=== PATIENT | male | born 2000 | race Caucasian/White ===

== ENCOUNTER 2019-04-25 13:46 | Emergency (ER) | payer OTHER ==
[2019-04-25 13:59] VITALS: BP 116/75; PULSE 75; RESP 20; TEMP 98.6
--- NOTE | 2019-04-25 14:50 | ED ---
Wound/Laceration HPI - General Chief Complaint: Wound/Laceration Stated Complaint: Finger Lac Time Seen by Provider: 04/25/19 14:11 Source: patient, RN notes reviewed, old records reviewed Mode of arrival: ambulatory Limitations: no limitations - History of Present Illness Initial Comments: This is a 19-year-old male presents emergency department today for evaluation for laceration over his right index finger. Patient reports he cut it on a knife while he was at work. 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 Patient states that he has full range of motion of the finger. Lacerations over the side of the finger over the PIP. - Related Data Previous Rx's Medication Instructions Recorded Cephalexin [Keflex] 500 mg PO Q6HR 3 Days #12 cap 04/25/19 Allergies Allergy/AdvReac Type Severity Reaction Status Date / Time No Known Allergies Allergy Verified 04/25/19 13:59 Review of Systems ROS Statement: Those systems with pertinent positive or pertinent negative responses have been documented in the HPI. ROS Other: All systems not noted in ROS Statement are negative. Past Medical History Past Medical History: No Reported History History of Any Multi-Drug Resistant Organisms: None Reported Past Surgical History: No Surgical Hx Reported Past Psychological History: No Psychological Hx Reported Smoking Status: Never smoker Past Alcohol Use History: Occasional Past Drug Use History: Marijuana General Exam - General Exam Comments Initial Comments: 19 year old male, no distress. Limitations: no limitations General appearance: alert, in no apparent distress Head exam: Present: atraumatic, normocephalic, normal inspection Eye exam: Present: normal appearance, PERRL, EOMI. Absent: scleral icterus, conjunctival injection, periorbital swelling ENT exam: Present: normal exam, mucous membranes moist Neck exam: Present: normal inspection. Absent: tenderness, meningismus, lymphadenopathy Respiratory exam: Present: normal lung sounds bilaterally. Absent: respiratory distress, wheezes, rales, rhonchi, stridor Cardiovascular Exam: Present: regular rate, normal rhythm, normal heart sounds. Absent: systolic murmur, diastolic murmur, rubs, gallop, clicks Right Hand Wrist exam: Present: full ROM, laceration (3cm flap laceration over 2nd digit PIP. 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 ). Absent: normal inspection Neuro motor exam: Present: wrist extension intact, thumb opposition intact, thumb IP flexion intact, thumb adduction intact, fingers 2-5 abduction intact Vascular: Present: normal capillary refill Course Vital Signs 04/25/19 13:57 Temperature 98.6 F Pulse Rate 75 Respiratory 20 Rate Blood Pressure 116/75 O2 Sat by Pulse 99 Oximetry Procedures - Laceration Laceration #1 Site: hand (left fourth digit. ) Size (cm): 3 Description: flap Depth: simple, single layer Anesthetic Used: lidocaine 1% Anesthesia Technique: nerve block Amount (mls): 4 Pre-repair: wound explored, irrigated extensively Type of Sutures: nylon Size of Sutures: 5-0 Number of Sutures: 5 Technique: simple, interrupted Patient Tolerated Procedure: well, no complications Medical Decision Making - Medical Decision Making 19 year old male presents with 2nd right digit laceration after cutting it at work with knife. 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 Patient refused tetanus vaccine, discussed concern for dirty wound and risk of from tetnus. He is adament no treatement with TDAP. Xray shows no fracture, possible foreign body, wound was irrigated copiously with 4 liters of sterile water and wound was cleansed with iodoine. No foreign body identified. Patient laceration was well approximated with 5 sutures. Discussed putting patient on short course of keflex for concern for infection. Discussed close PCP follow up. - Radiology Data Radiology results: report reviewed No definite acute fracture or dislocation. Soft tissue edema and lacerations its possible tiny linear foreign body noted on oblique view. Correlate clinically. Disposition Clinical Impression: Laceration of finger Disposition: HOME SELF-CARE Condition: Good Instructions (If sedation given, give patient instructions): Laceration (ED) Additional Instructions: Please return to the emergency room in 8-10 days to have sutures removed. Please leave wound covered for the first 24-48 hours and then leave open to air after that time. Please use clean soap and water to clean the suture area to prevent scabbing over the top of your sutures. Please watch for any signs of infection which may include but not limited to increased pain, swelling, redness, fever or chills. Please return to the emergency room if any signs of infection do occur. Please return to the emergency room for any other concerns or complications. Prescriptions: Cephalexin [Keflex] 500 mg PO Q6HR 3 Days #12 cap Is patient prescribed a controlled substance at d/c from ED?: No Referrals: Colt Cleaning MD [Primary Care Provider] - 1-2 days Time of Disposition: 15:56
--- NOTE | 2019-04-25 14:51 | XR ---
EXAMINATION TYPE: XR finger RT DATE OF EXAM: 04/25/2019 COMPARISON: NONE HISTORY: Pain TECHNIQUE: Three views are submitted. FINDINGS: The osseous structures are intact. The joint spaces are preserved and there is no acute fracture or dislocation. There is soft tissue edema and laceration involving the second digit. On the oblique vie w there is suggestion of possible linear foreign body at the level of the PIP joint. IMPRESSION: 1. No definite acute fracture or dislocation if symptoms persist, follow-up study in 7 to 10 days wo uld be suggested 2. Soft tissue edema and laceration with possible tiny linear foreign body noted on the oblique view correlate clinically
== END 2019-04-25 16:15 | disposition home or self-care (01) ==
LOC: EC 13:46
DX: S61.215A Laceration without foreign body of left ring finger without damage to nail, initial encounter (principal); W26.0XXA Contact with knife, initial encounter
CPT/HCPCS: 12002; 99283

== ENCOUNTER 2022-07-29 19:23 | Emergency (ER) | payer OTHER ==
[2022-07-29] MEDS ORDERED: DIPH,PERTUS(ACELL)TETVAC-LF 0.5 ML VIAL IM ONE (19:29)
[2022-07-29] MEDS ORDERED: KETAMINE 10 MG/ML 20 ML VIAL IV ONE (19:32)
[2022-07-29 19:42] LABS: Basophils % (A) 0 %; Eosinophils # (A) 0.3 k/uL (0-0.7); Eosinophils % (A) 2 %; HCT 38.8 % (39.0-53.0); HGB 13.5 gm/dL (13.0-17.5); Lymphocytes # (A) 2.8 k/uL (1.0-4.8); Lymphocytes % (A) 23 %; MCH 29.6 pg (25.0-35.0); MCHC 34.7 g/dL (31.0-37.0); MCV 85.1 fL (80.0-100.0); Mean Platelet Volume 7.6; Monocytes # (A) 0.5 k/uL (0-1.0); Monocytes % (A) 4 %; Neutrophils # (A) 8.1 k/uL (1.3-7.7); Neutrophils % (A) 68 %; Platelet Count 333 k/uL (150-450); RBC 4.56 m/uL (4.30-5.90); WBC 11.9 k/uL (3.8-10.6)
[2022-07-29 19:50] LABS: Partial Thromboplastin Time 22.7 sec (22.0-30.0); Prothrombin Time 10.7 sec (9.0-12.0)
[2022-07-29 19:58] LABS: ALT 26 U/L (4-49); AST 25 U/L (17-59); African American GFR (CKD) >90 (>60 ml/min/1.73 sqM); Albumin 3.9 g/dL (3.5-5.0); Alkaline Phosphatase 71 U/L (38-126); Anion Gap 13 mmol/L; Blood Urea Nitrogen 19 mg/dL (9-20); Calcium 8.3 mg/dL (8.4-10.2); Carbon Dioxide 21 mmol/L (22-30); Chloride 101 mmol/L (98-107); Glucose 109 mg/dL (74-99); Non-African American GFR(CKD) 85 (>60 ml/min/1.73 sqM); Sodium 135 mmol/L (137-145); Total Bilirubin 0.5 mg/dL (0.2-1.3); Total Protein 6.1 g/dL (6.3-8.2)
[2022-07-29] MEDS ORDERED: KETAMINE 50 MG/ML 10 ML VIAL IM ONE ×2 (20:00)
[2022-07-29] MEDS ORDERED: KETAMINE 50 MG/ML 10 ML VIAL IV ONE (20:00)
--- NOTE | 2022-07-29 20:07 | XR ---
EXAMINATION TYPE: XR ankle limited RT DATE OF EXAM: 07/29/2022 COMPARISON: NONE HISTORY: Fall. Pain TECHNIQUE: 2 views FINDINGS: There is anterior dislocation of the talus. There is transverse fracture of the distal shaf t of the fibula. There is anterior displacement of the talus 8 cm. There is an open fracture and appa rent exposure of the posterior malleolus. The calcaneus appears intact. There is likely fracture of t he medial malleolus. There is probably chip fracture of the posterior malleolus. IMPRESSION: Open anterior fracture dislocation of the talus. Transverse fracture distal fibula.
[2022-07-29 20:09] LABS: Alcohol 117 mg/dL
--- NOTE | 2022-07-29 20:09 | XR ---
EXAMINATION TYPE: XR chest 1V portable DATE OF EXAM: 07/29/2022 COMPARISON: NONE HISTORY: Fall. Pain TECHNIQUE: 2 views portable supine FINDINGS: There is no heart failure nor confluent pneumonic infiltrate. No evidence of pleural effusi on or pneumothorax. No rib fracture seen. Trachea is midline. Heart and mediastinum are normal. The l ungs are clear. IMPRESSION: No active cardiopulmonary disease.
[2022-07-29 20:10] VITALS: PULSE 87
--- NOTE | 2022-07-29 20:10 | XR ---
EXAMINATION TYPE: XR pelvis AP view DATE OF EXAM: 07/29/2022 COMPARISON: NONE HISTORY: Fall. Pain TECHNIQUE: Single view FINDINGS: The pelvic ring is intact. Proximal femurs and hip joints are intact. Sacroiliac joints are intact. IMPRESSION: Negative pelvis xray exam. No fracture.
--- NOTE | 2022-07-29 20:10 | XR ---
EXAMINATION TYPE: XR shoulder limited RT DATE OF EXAM: 07/29/2022 COMPARISON: NONE HISTORY: Fall. Pain TECHNIQUE: Single view FINDINGS: There is apparent anterior dislocation of the glenohumeral joint. Scapula is intact. No fra cture seen. IMPRESSION: Anterior dislocation of the glenohumeral joint.
--- NOTE | 2022-07-29 20:11 | ED ---
General Adult HPI - General Stated complaint: Fall, Open right leg fracture, Shoulder Injury Time Seen by Provider: 07/29/22 19:26 Source: patient Mode of arrival: ambulatory Limitations: no limitations - History of Present Illness Initial comments: Dictation was produced using [employer] dictation software. please excuse any grammatical, word or spelling errors. Chief Complaint: 22-year-old male presents with fall from 20 feet History of Present Illness: Patient 22-year-old male presents emergency Department with fall from 20 feet. Patient just prior to arrival was climbing on a fence that was about 20 feet. He was dared by his friends. He had several alcoholic beverages. Patient got to the top lost balance decided to jump backwards. Patient noted significant bleeding from his leg. He also had gross deformity to his right shoulder. Patient denies any medical comorbidities. EMS placed patient's right lower extremity and a tourniquet. Patient was given 10 mg of morphine just prior to arrival. Denies any loss of conscious. Denies any chest pain or shoulder pain. The ROS documented in this emergency department record has been reviewed and confirmed by me. Those systems with pertinent positive or negative responses have been documented in the HPI. All other systems are other negative and/or noncontributory. PHYSICAL EXAM: General Impression: Alert and oriented x3, acute distress secondary to pain, inebriated HEENT: Normocephalic atraumatic, extra-ocular movements intact, pupils equal and reactive to light bilaterally, mucous membranes moist. Cardiovascular: Heart regular rate and rhythm Chest: Able to complete full sentences, no retractions, no tachypnea Abdomen: abdomen soft, non-tender, non-distended, no organomegaly Musculoskeletal: Pulses present and equal in all extremities, no peripheral edema Motor: no focal deficits noted Right lower extremity: Open fracture with gross deformity. There is a open fracture at the medial portion Upper extremity: There appears to be fullness to the anterior portion with sulcus sign Neurological: CN II-XII grossly intact, no focal motor or sensory deficits noted Skin: Intact with no visualized rashes Psych: Normal affect and mood ED course: 22-year-old male presents emergency Department with chief complaint of fall. He has open fracture dislocation of the right ankle and dislocation of the right shoulder. Vital signs upon arrival are within acceptable limits. Patient given Ancef. Tetanus was updated. Patient given sedation with ketamine. There was an attempt to reduce the right ankle fracture dislocation however unsuccessful. Case discussed with Dr. Rai who states just to splint the leg and to send the patient down. Patient has good dorsalis pedis pulse. Tourniquet was taken down. Right shoulder was reduced with ketamine sedation. Patient will be transferred to [facility]. Septic physician is Dr. Rai, Dr. Vazquez and Dr. Shepherd. In order to reduce transfer times CTs will be deferred to [facility]. Patient has no physical exam signs of abdominal, thoracic, cervical or intracranial trauma. Shoulder x-ray performed prior to procedure shows anterior shoulder dislocation. Pelvis x-ray is unremarkable. Chest x-ray is unremarkable. Ankle x-ray shows open anterior fracture dislocation of the talus. There is also a transverse fr acture distal fibula. - Related Data Previous Rx's Medication Instructions Recorded Cephalexin [Keflex] 500 mg PO Q6HR 3 Days #12 cap 04/25/19 Allergies Allergy/AdvReac Type Severity Reaction Status Date / Time bee venom protein (honey bee) AdvReac Unknown Verified 07/29/22 19:42 honeysuckle flower AdvReac Unknown Verified 07/29/22 19:42 Review of Systems ROS Statement: Those systems with pertinent positive or pertinent negative responses have been documented in the HPI. ROS Other: All systems not noted in ROS Statement are negative. Past Medical History Past Medical History: No Reported History History of Any Multi-Drug Resistant Organisms: None Reported Past Surgical History: No Surgical Hx Reported Past Psychological History: No Psychological Hx Reported Smoking Status: Current some day smoker Past Alcohol Use History: Occasional Past Drug Use History: Marijuana General Exam Limitations: no limitations Course Vital Signs 07/29/22 07/29/22 07/29/22 19:42 19:48 19:50 Temperature 98.0 F Pulse Rate 92 87 97 Respiratory 18 16 18 Rate Blood Pressure 145/77 149/84 158/83 O2 Sat by Pulse 100 100 100 Oximetry 07/29/22 07/29/22 19:55 20:00 Temperature Pulse Rate 107 H 87 Respiratory 18 20 Rate Blood Pressure 156/107 113/94 O2 Sat by Pulse 98 98 Oximetry Procedures - Orthopedic Joint Reduction Joint #1 Consent Obtained: verbal consent, emergent situation Side: right Joint Reduction Location: shoulder Analgesia: procedural sedation Shoulder Technique Used (if applicable): traction/counter-traction Post-Reduction Neuro Exam: intact Post-Reduction Vascular Exam: intact Post Reduction X-Ray Obtained: No Splint Applied: Yes Patient Tolerated Procedure: well Joint #2 Consent Obtained: verbal consent, emergent situation Side: right Joint Reduction Location: ankle Analgesia: procedural sedation Technique Used: traction/counter-traction Post-Reduction Neuro Exam: intact Post-Reduction Vascular Exam: intact Post Reduction X-Ray Obtained: No Post Reduction X-Ray Results: not reduced Splint Applied: Yes - Procedural Sedation Procedural Sedation Start Time: 19:30 Procedural Sedation Stop Time: 19:40 Indications: fracture/dislocation reduction ASA Class: II Mallampati Airway Score: 2 Preparation: night monitor applied, pulse oximeter, capnometry used Ketamine: IV Ketamine Dose: 200 Complications: none Patient Tolerated Procedure: well Medical Decision Making - Lab Data Result diagrams: 07/29/22 19:28 07/29/22 19:28 Lab Results 07/29/22 07/29/22 07/29/22 Range/Units 19:28 19:28 19:28 WBC 11.9 H (3.8-10.6) k/uL RBC 4.56 (4.30-5.90) m/uL Hgb 13.5 (13.0-17.5) gm/dL Hct 38.8 L (39.0-53.0) % MCV 85.1 (80.0-100.0) fL MCH 29.6 (25.0-35.0) pg MCHC 34.7 (31.0-37.0) g/dL RDW 13.0 (11.5-15.5) % Plt Count 333 (150-450) k/uL MPV 7.6 Neutrophils % 68 % Lymphocytes % 23 % Monocytes % 4 % Eosinophils % 2 % Basophils % 0 % Neutrophils # 8.1 H (1.3-7.7) k/uL Lymphocytes # 2.8 (1.0-4.8) k/uL Monocytes # 0.5 (0-1.0) k/uL Eosinophils # 0.3 (0-0.7) k/uL Basophils # 0.0 (0-0.2) k/uL PT 10.7 (9.0-12.0) sec INR 1.0 (<1.2) APTT 22.7 (22.0-30.0) sec Sodium 135 L (137-145) mmol/L Potassium 4.0 (3.5-5.1) mmol/L Chloride 101 (98-107) mmol/L Carbon Dioxide 21 L (22-30) mmol/L Anion Gap 13 mmol/L BUN 19 (9-20) mg/dL Creatinine 1.19 (0.66-1.25) mg/dL Est GFR (CKD-EPI)AfAm >90 (>60 ml/min/1.73 sqM) Est GFR (CKD-EPI)NonAf 85 (>60 ml/min/1.73 sqM) Glucose 109 H (74-99) mg/dL Calcium 8.3 L (8.4-10.2) mg/dL Total Bilirubin 0.5 (0.2-1.3) mg/dL AST 25 (17-59) U/L ALT 26 (4-49) U/L Alkaline Phosphatase 71 (38-126) U/L Troponin I (0.000-0.034) ng/mL Total Protein 6.1 L (6.3-8.2) g/dL Albumin 3.9 (3.5-5.0) g/dL Serum Alcohol 117 mg/dL Blood Type Recheck Bld Type Recheck Status Spec Expiration Date 07/29/22 07/29/22 Range/Units 19:28 19:28 WBC (3.8-10.6) k/uL RBC (4.30-5.90) m/uL Hgb (13.0-17.5) gm/dL Hct (39.0-53.0) % MCV (80.0-100.0) fL MCH (25.0-35.0) pg MCHC (31.0-37.0) g/dL RDW (11.5-15.5) % Plt Count (150-450) k/uL MPV Neutrophils % % Lymphocytes % % Monocytes % % Eosinophils % % Basophils % % Neutrophils # (1.3-7.7) k/uL Lymphocytes # (1.0-4.8) k/uL Monocytes # (0-1.0) k/uL Eosinophils # (0-0.7) k/uL Basophils # (0-0.2) k/uL PT (9.0-12.0) sec INR (<1.2) APTT (22.0-30.0) sec Sodium (137-145) mmol/L Potassium (3.5-5.1) mmol/L Chloride (98-107) mmol/L Carbon Dioxide (22-30) mmol/L Anion Gap mmol/L BUN (9-20) mg/dL Creatinine (0.66-1.25) mg/dL Est GFR (CKD-EPI)AfAm (>60 ml/min/1.73 sqM) Est GFR (CKD-EPI)NonAf (>60 ml/min/1.73 sqM) Glucose (74-99) mg/dL Calcium (8.4-10.2) mg/dL Total Bilirubin (0.2-1.3) mg/dL AST (17-59) U/L ALT (4-49) U/L Alkaline Phosphatase (38-126) U/L Troponin I <0.012 (0.000-0.034) ng/mL Total Protein (6.3-8.2) g/dL Albumin (3.5-5.0) g/dL Serum Alcohol mg/dL Blood Type Recheck No Previous Record Bld Type Recheck Status CABO Indicated Spec Expiration Date 08/01/20222327 Critical Care Time Critical Care Time: Yes Total Critical Care Time: 33 Disposition Clinical Impression: Open right ankle fracture, Dislocation of right shoulder joint, Fall Disposition: OTHER INSTITUTION NOT DEFINED Condition: Serious Referrals: Colt Cleaning MD [Primary Care Provider] - 1-2 days Time of Disposition: 20:10 - Out of Hospital Transfer - Req. Specs Out of Hospital Transfer - Requested Specifics: Other Emergency Center ([facility])
[2022-07-29] MEDS ORDERED: SODIUM CHLORIDE 0.9% 1,000 ML IV ONE (20:27)
[2022-07-29 21:32] VITALS: BP 140/94; RESP 16; TEMP 97.7
== END 2022-07-29 20:17 | disposition other institution (70) ==
LOC: EC 19:23
DX: S82.891B Other fracture of right lower leg, initial encounter for open fracture type I or II (principal); S43.004A Unspecified dislocation of right shoulder joint, initial encounter; F10.10 Alcohol abuse, uncomplicated; F17.200 Nicotine dependence, unspecified, uncomplicated; Z23 Encounter for immunization; Z91.030 Bee allergy status; Z91.048 Other nonmedicinal substance allergy status; W17.89XA Other fall from one level to another, initial encounter; Y90.5 Blood alcohol level of 100-119 mg/100 ml; Y93.39 Activity, other involving climbing, rappelling and jumping off
CPT/HCPCS: 99285; 23650; 99152; 96365; 90471; 86900; 86901; 80053; 84484; 85025; 85610; 85730; 86850; 80320; 72170; 73020; 73600; 71045; 90715; J0690; 36415